=== PATIENT | male | born 1960 | race Caucasian/White ===

== ENCOUNTER 2016-08-07 20:04 | Observation (INO) ==
[2016-08-07] MEDS ORDERED: 0.9 % Sodium Chloride 1,000 ML IVC ONE (20:09)
--- NOTE | 2016-08-07 20:19 | Emergency Department Note ---
Disposition Clinical Impression: Syncope, near Disposition: Admitted As Inpatient Condition: Good Time of Disposition: 22:38 General Adult HPI - General Chief complaint: ED Syncope Stated complaint: syncope Time Seen by Provider: 08/07/16 20:09 Source: EMS Limitations: no limitations Nursing Notes Reviewed: Yes Vital Signs Reviewed: Yes - History of Present Illness HPI Narrative: Outpatient saying that he had a near syncopal episode. This started while sitting. He did have one episode of vomiting and was nauseated prior to feeling like he is going to pass out. He states this happened several times before. The last event was 2 months ago. He states that he has been worked up for this several times with no resolution of his symptoms. Pain Scale: 0 - Related Data Allergies Allergy/AdvReac Type Severity Reaction Status Date / Time No Known Allergies Allergy Verified 08/07/16 20:06 Review of Systems: Patient denies any fevers or chills. He does report a chronic cough that is present over a year with a white sputum. There is been no change in the sputum. His pain but does report right lung pain. He states he has history of pleurisy and this feels the same. He is reporting a near syncopal episode today. Had one episode of vomiting as well as nausea before he got dizzy. He denies any nausea at this time, he denies any abdominal pain. He denies any swelling to his extremities. All systems ED: reviewed and negative except as stated. Past Medical History - Past Medical History Medical history: Reports: coronary artery disease, myocardial infarction Psychiatric history: Reports: no psych history - Social History Smoking Status: Current every day smoker Smokeless Tobacco Status: No Alcohol use: Reports: none, rarely Drug use: Reports: marijuana Physical Exam - General Limitations: no limitations General appearance: alert, in no apparent distress - Head Head exam: atraumatic, normocephalic, normal inspection - Eye Eye exam: Present: normal appearance, PERRL, EOMI. Absent: scleral icterus - ENT ENT exam: normal exam, normal oropharynx, mucous membranes moist - Neck Neck exam: Present: normal inspection, full ROM, trachea midline. Absent: tenderness - Chest Chest inspection: Present: normal inspection, symmetric chest wall rise. Absent : tenderness - Respiratory Respiratory exam: Present: normal lung sounds bilaterally. Absent: respiratory distress, wheezes, accessory muscle use - Cardiovascular Cardiovascular exam: Present: regular rate, normal rhythm, normal heart sounds - Abdominal Exam Abdominal exam: Present: soft, Non-Tender, normal bowel sounds - Extremities Exam Extremities exam: Present: normal inspection, full ROM. Absent: tenderness, pedal edema - Expanded Lower Extremity Exam Hip/Pelvis exam: Present: normal inspection, full ROM Upper leg exam: Present: normal inspection, full ROM Knee exam: Present: normal inspection, full ROM Lower leg exam: Present: normal inspection, full ROM Ankle exam: Present: normal inspection, full ROM Foot/toe exam: Present: normal inspection, full ROM Neurovascular/Tendon exam: Absent: motor deficit, sensory deficit, tendon deficit - Back Exam Back exam: Present: normal inspection, full ROM. Absent: tenderness - Neurological Exam Neurological exam: Present: alert, oriented X3 - Psychiatric Psychiatric exam: Present: normal affect, normal mood - Skin Skin exam: Present: warm, dry, intact. Absent: normal color, rash, cyanosis, diaphoresis, erythema Course Course Narrative: Patient brought into the emergency department by EMS. Patient states he was outside for 4 hours today and he was swimming for about an hour. He states he did not have very much fluid intake. He states that he was sitting on the step whenever he started getting short of breath and dizzy feeling. He states that he then had one episode of vomiting. He felt like he may pass out so he laid down. He states that this happens to him frequently with the last event being 2 months ago. He did not actually pass out. He did get to lay down prior to syncopizing. He denies any chest pain. He states he did get short of breath. He complains of a two-week history of right lung pain. He states he has had pleurisy before and this feels the same. The cough but states this is no different than his normal cough and has been the same for over a year. He denies any fevers or chills. He has no complaints at this time. He states that he feels 100% better. He states that whenever he was dizzy at home that all of the people at his house her TIE HACKER use of some sort and they took his blood pressure. He states that he was systolically in the 60s. During His EMS transport he was given 250 mL of normal saline. We will do a cardiac workup on the patient. I will also get a d-dimer due to his right-sided lung pain. He states that this is not present at this time. - Reevaluation(s) Reevaluation #1: Pt Reevaluated. He states he still does not have any symptoms. He is requesting water. He handles this well. Time: 21:03 Reevaluation #2: Patient's workup is remarkably normal. He does have a slightly increased white count. This could possibly be from his episode of vomiting. I am concerned for patient's near syncopal event especially when it began all he was sitting. After talking with the family that Y states this actually happened 3 times prior to his arrival to the emergency department today. The patient now admits to at least 2 times. We will admit patient to the hospital for further cardiac evaluation. He is agreeable to this. Time: 22:36 - Consultations Consultation #1: Dr Lemos accepted patient in stable condition. Time: 22:41 Vital Signs Temperature 97.5 F L 08/07/16 20:05 Pulse Rate 68 08/07/16 20:05 Respiratory Rate 18 08/07/16 20:05 Blood Pressure 104/67 08/07/16 20:05 O2 Sat by Pulse Oximetry 95 08/07/16 20:05 Temperature 97.5 F L 08/07/16 20:05 Pulse Rate 72 08/07/16 22:14 Respiratory Rate 14 08/07/16 22:14 Blood Pressure 112/69 08/07/16 22:14 O2 Sat by Pulse Oximetry 96 08/07/16 22:14 Oxygen Delivery Oxygen Delivery Room Air Medical Decision Making - Lab Data Lab results reviewed: Yes I reviewed the patient's lab results. Result diagrams: 08/07/16 20:27 08/07/16 20:27 Lab Results 08/07/16 08/07/16 08/07/16 Range/Units 20:27 20:27 20:27 WBC 13.7 H (4.3-11.1) K/mcL RBC 4.68 (4.19-5.50) M/mcL Hgb 13.6 (12.9-16.9) g/dL Hct 41.9 (37.5-50.1) % MCV 89.5 (83.0-100.0) fL MCH 29.1 (28.0-33.3) pg MCHC 32.5 (31.6-35.5) g/dL RDW 14.1 (11.5-14.5) % Plt Count 179 (140-400) K/mcL MPV 9.4 (9.4-12.4) fL Immature Gran % 0.5 (0-4) % Seg Neutrophils % 71.4 % Lymphocytes % 17.5 % Monocytes % 8.5 % Eosinophils % 1.6 % Basophils % 0.5 % Neutrophils # 9.8 H (1.6-8.9) K/mcL Lymphocytes # 2.4 (0.6-4.6) K/mcL Monocytes # 1.2 (0.0-1.3) K/mcL Eosinophils # 0.2 (0.0-0.6) K/mcL Basophils # 0.1 (0.0-0.2) K/mcL D-Dimer (0-500) ng/mLFEU Sodium 138 (136-145) mEq/L Potassium 4.0 (3.5-4.5) mEq/L Chloride 109 (98-109) mEq/L Carbon Dioxide 22 (19-29) mEq/L BUN 18 (8-26) mg/dL Creatinine 1.13 (0.72-1.25) mg/dL Est GFR ( Amer) > 60 (> 60) Est GFR (Non-Af Amer) > 60 (> 60) BUN/Creatinine Ratio 16 (6-26) Glucose 119 H (70-99) mg/dL Calculated Osmolality 289 (280-300) Calcium 8.8 (8.6-10.8) mg/dL Troponin I 0.00 (0-0.03) ng/mL Urine Color (Yellow) Urine Clarity (Clear) Urine pH (5.0-8.0) pH Units Ur Specific [place] (1.010-1.025) Urine Protein (Neg-Trace) mg/dL Urine Glucose (UA) (Normal) mg/dL Urine Ketones (Negative) mg/dL Urine Blood (Negative) Urine Nitrite (Negative) Urine Bilirubin (Negative) Urine Urobilinogen (Normal) mg/dL Ur Leukocyte Esterase (Negative) Ur Culture Indicated? (NO) 08/07/16 08/07/16 Range/Units 20:27 21:49 WBC (4.3-11.1) K/mcL RBC (4.19-5.50) M/mcL Hgb (12.9-16.9) g/dL Hct (37.5-50.1) % MCV (83.0-100.0) fL MCH (28.0-33.3) pg MCHC (31.6-35.5) g/dL RDW (11.5-14.5) % Plt Count (140-400) K/mcL MPV (9.4-12.4) fL Immature Gran % (0-4) % Seg Neutrophils % % Lymphocytes % % Monocytes % % Eosinophils % % Basophils % % Neutrophils # (1.6-8.9) K/mcL Lymphocytes # (0.6-4.6) K/mcL Monocytes # (0.0-1.3) K/mcL Eosinophils # (0.0-0.6) K/mcL Basophils # (0.0-0.2) K/mcL D-Dimer < 215 (0-500) ng/mLFEU Sodium (136-145) mEq/L Potassium (3.5-4.5) mEq/L Chloride (98-109) mEq/L Carbon Dioxide (19-29) mEq/L BUN (8-26) mg/dL Creatinine (0.72-1.25) mg/dL Est GFR ( Amer) (> 60) Est GFR (Non-Af Amer) (> 60) BUN/Creatinine Ratio (6-26) Glucose (70-99) mg/dL Calculated Osmolality (280-300) Calcium (8.6-10.8) mg/dL Troponin I (0-0.03) ng/mL Urine Color Yellow (Yellow) Urine Clarity Clear (Clear) Urine pH 5.5 (5.0-8.0) pH Units Ur Specific [place] 1.026 H (1.010-1.025) Urine Protein Negative (Neg-Trace) mg/dL Urine Glucose (UA) Normal (Normal) mg/dL Urine Ketones Negative (Negative) mg/dL Urine Blood Negative (Negative) Urine Nitrite Negative (Negative) Urine Bilirubin Negative (Negative) Urine Urobilinogen Normal (Normal) mg/dL Ur Leukocyte Esterase Negative (Negative) Ur Culture Indicated? NO (NO) - EKG Data EKG #1 EKG attestation: Yes I reviewed and interpreted this EKG. EKG results narrative: Normal sinus rhythm at a rate of 67. NH interval is 171. QRS duration is 144. QT is 393. QTC is 408. Right bundle branch block. There is some mild ST elevation in leads V1 and V2 with no reciprocal changes. These were on previous EKG dated 06/02/2015. Attestation Statement - Attestation Attestation: I examined this patient and my medical decision-making was reviewed with the MOTOR ADJUSTER/PA/Advanced Practice Nurse/Resident Physician. I agree with the documented findings, disposition and treatment plan as described except to the extent set forth below. Patient emergency department with a chief complaint of syncope. Patient states he had been outside for 45 hours. He had been in the pool for about an hour. He was sitting on the porch when he felt lightheaded and short of breath. History of similar episodes. They do not usually happen when he sitting down. He does have a cardiac history of 5 stents. On examination he is awake and alert sitting up in bed in no acute distress. Neurologically intact. Moving all extremities. Lungs clear. Plan. Cardiac workup with d-dimer. Likely observation.. Workup unremarkable. EKG is unchanged from his prior which we were able to obtain from [facility]. Admitted to hospitalist.
[2016-08-07 20:36] LABS: Basophils # 0.1 K/mcL (0.0-0.2); Basophils % 0.5 %; Eosinophils # 0.2 K/mcL (0.0-0.6); Eosinophils % 1.6 %; Hematocrit 41.9 % (37.5-50.1); Hemoglobin 13.6 g/dL (12.9-16.9); Immature Granulocytes % 0.5 % (0-4); Lymphocytes # 2.4 K/mcL (0.6-4.6); Lymphocytes % 17.5 %; Mean Corpuscular HGB Conc 32.5 g/dL (31.6-35.5); Mean Corpuscular Hemoglobin 29.1 pg (28.0-33.3); Mean Corpuscular Volume 89.5 fL (83.0-100.0); Mean Platelet Volume 9.4 fL (9.4-12.4); Monocytes # 1.2 K/mcL (0.0-1.3); Monocytes % 8.5 %; Neutrophils # 9.8 K/mcL (1.6-8.9); Platelet Count 179 K/mcL (140-400); Red Blood Count 4.68 M/mcL (4.19-5.50); Red Cell Distribution Width 14.1 % (11.5-14.5); Segmented Neutrophils % 71.4 %
[2016-08-07 20:49] LABS: BUN/Creatinine Ratio 16 (6-26); Blood Urea Nitrogen 18 mg/dL (8-26); Calcium 8.8 mg/dL (8.6-10.8); Carbon Dioxide 22 mEq/L (19-29); Chloride 109 mEq/L (98-109); Glucose 119 mg/dL (70-99); Osmolality,Calculated 289 (280-300); Sodium 138 mEq/L (136-145); eGFR For African Americans > 60 (> 60); eGFR For Non-African Americans > 60 (> 60)
[2016-08-07 21:59] LABS: Bilirubin,Urine Negative (Negative); Blood,Urine Negative (Negative); Clarity,Urine Clear (Clear); Color,Urine Yellow (Yellow); Glucose,Urine (UA) Normal (Normal); Ketones,Urine Negative (Negative); Leukocyte Esterase,Urine Negative (Negative); Nitrite,Urine Negative (Negative); PH,Urine 5.5 pH Units (5.0-8.0); Protein,Urine Negative (Neg-Trace); Specific Gravity,Urine 1.026 (1.010-1.025); Urobilinogen,Urine Normal (Normal)
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
[2016-08-08] MEDS ORDERED: Naloxone 0.4 MG/ML INJ IVP PRN (00:59)
[2016-08-08] MEDS: 0.9 % Sodium Chloride 1,000 ML IVC SCH ×2 (01:30→11:30)
[2016-08-08] MEDS ORDERED: Gabapentin 300 MG CAPSULE PO PRN (02:51)
[2016-08-08 02:54] LABS: Hematocrit 41.8 % (37.5-50.1); Hemoglobin 13.7 g/dL (12.9-16.9); Mean Corpuscular HGB Conc 32.8 g/dL (31.6-35.5); Mean Corpuscular Hemoglobin 29.8 pg (28.0-33.3); Mean Corpuscular Volume 90.9 fL (83.0-100.0); Mean Platelet Volume 9.7 fL (9.4-12.4); Platelet Count 171 K/mcL (140-400); Red Cell Distribution Width 14.1 % (11.5-14.5)
[2016-08-08 03:06] LABS: BUN/Creatinine Ratio 17 (6-26); Blood Urea Nitrogen 15 mg/dL (8-26); Calcium 8.3 mg/dL (8.6-10.8); Carbon Dioxide 22 mEq/L (19-29); Chloride 112 mEq/L (98-109); Glucose 96 mg/dL (70-99); Magnesium 1.8 mg/dL (1.6-2.6); Osmolality,Calculated 291 (280-300); Potassium 4.3 mEq/L (3.5-4.5); Sodium 140 mEq/L (136-145); eGFR For African Americans > 60 (> 60); eGFR For Non-African Americans > 60 (> 60)
[2016-08-08] MEDS ORDERED: Aspirin Enteric Coated 325 MG Tablet PO SCH (09:00)
[2016-08-08 10:28] VITALS: BP 143/75
--- NOTE | 2016-08-08 11:18 | Cardiology Consult Note ---
Date of Encounter: 08/08/16 Time of Encounter: 11:15 Assessment and Plan (1) Syncope, near Current Visit: Yes Status: Acute Present episode appears noncardiac, relatated to hypovolemia. He does however have conduction system disease. Current w/u negative, would recommend outpt. cardiology follow up. (2) RBBB Current Visit: Yes Status: Chronic Discussion w patient/family: The assessment and plan as outlined above was discussed with the patient and/or family members who expressed understanding and agreement. All questions were answered. Thank you for involving us in the care of your patient. Please call with any questions. History of Present Illness Consult date: 08/08/16 Requesting physician: Jacklyn Parson Consult reason: Presycope History of present illness: Mr. Encinas is a 56 year old male with no cardiac history who presents after presyncope spell. He has had these spells before where he has some warning and he says his BP drops, then he feels washed out for the rest of the day. He has never actually passed out. Past Med Surg Social Fam HX - Past Medical History Medical history: coronary artery disease, myocardial infarction Psychiatric history: no psych history - Social History Smoking Status: Current every day smoker Packs per day: 0.5 Smokeless Tobacco Status: No Alcohol use: none, rarely Drug use: marijuana - Family History Father Adopted: [place]: JAMI Family Member Ethnicity: Non- Living Status: Age at : 62 Cause of : LIVER DISEASE Hx Family Cardiac Disorders: No Hx Family Respiratory Disorders: No Hx Family Cancer: No Hx Family GI Disorders: No Hx Family Genitourinary Disorders: No Hx Family Endocrine Disorder: No Hx Family Musculoskeletal Disorders: No Hx Family Neuromuscular Disorders: No Hx Family Neurologic Disorders: No Hx Family HEENT Disorders: No Hx Family Autoimmune Disorders: No Hx Family Reproductive Disorders: No Hx Family Psychosocial Disorders: No Hx Family Medical Disorders: No Medications and Allergies Aspirin [Ecotrin] 325 mg PO DAILY 08/07/16 [History] Atorvastatin [Lipitor] 10 mg PO DAILY 08/07/16 [History] Clopidogrel Bisulfate [Plavix] 75 mg PO DAILY 08/07/16 [History] Gabapentin [Neurontin] 300 mg PO TID PRN 08/07/16 [History] Allergies No Known Allergies Allergy (Verified 08/07/16 20:06) All Systems Review: A 10-system review of systems was performed and is negative for pertinent findings except as documented above in the HPI. Physical Examination Vital Signs, Last 4 Hours Temp Pulse Resp BP Pulse Ox 08/08/16 10:27 97.5 F L 64 16 143/75 99 General: Conversant, No Apparent Distress HEENT: Atraumatic, Normocephaly, Mucus Membranes Moist Neck: No JVD, Normal carotid pulses Cardiac: Reg Rate and Rhythm, Normal S1 and S2, No Murmur Lungs: Normal Breath Sounds, No Wheeze, Rales, Rhonchi Neuro: Alert and responsive, No focal deficits noted Abdomen: Soft, Non-Tender Skin: No rashes noted on visualized skin Musculoskeletal: No Chest Wall Tenderness Extremities: No Clubbing, No Cyanosis, No Edema, Normal Pulses Results 08/08/16 02:20 08/08/16 02:20 Lab Results 08/08/16 08/08/16 08/08/16 02:20 02:20 02:20 WBC 9.8 Hgb 13.7 Hct 41.8 Plt Count 171 Sodium 140 Potassium 4.3 Chloride 112 H Carbon Dioxide 22 BUN 15 Creatinine 0.86 Glucose 96 Calcium 8.3 L Magnesium 1.8 Troponin I 0.00 - EKG Interpretation EKG results cardiology: right bundle branch block Consult Discharge Plan - Plan Referrals: Senia Gutierrez, [employer]ACHINIST [Primary Care Provider] -
[2016-08-08] MEDS ORDERED: Nicotine 21 MG PATCH.TD24 TD SCH (12:30)
--- NOTE | 2016-08-08 13:50 | Discharge Summary ---
Date of Encounter: 08/08/16 Time of Encounter: 13:00 - Discharge Diagnosis (1) Syncope, near Priority: Primary Status: Acute Comments: Likely secondary to dehydration/hypovolemia. Chest x-ray negative. Urinalysis negative. Orthostatic vital signs unremarkable. Echocardiogram unremarkable with ejection fraction of 55%. Follow up outpatient with primary care provider and cardiology. (2) CAD (coronary artery disease) Priority: Secondary Status: Chronic Comments: Patient denied chest pain or shortness of breath throughout this admission. Qualifiers: Coronary Disease-Associated Artery/Lesion type: [place] artery [place] vs. transplanted heart: [place] heart Associated angina: without angina Qualified Code(s): I25.10 - Atherosclerotic heart disease of [place] coronary artery without angina pectoris (3) Leucocytosis Priority: Primary Status: Resolved Comments: Likely stress related, no signs of acute infection Qualifiers: Leukocytosis type: unspecified Qualified Code(s): D72.829 - Elevated white blood cell count, unspecified (4) RBBB Priority: Secondary Status: Chronic Comments: Follow-up outpatient with cardiology (5) Tobacco abuse Priority: Secondary Status: Chronic Comments: Declined counseling - Discharge Medications Home Medications: Aspirin [Ecotrin] 325 mg PO DAILY 08/07/16 [History] Atorvastatin [Lipitor] 10 mg PO DAILY 08/07/16 [History] Clopidogrel Bisulfate [Plavix] 75 mg PO DAILY 08/07/16 [History] Gabapentin [Neurontin] 300 mg PO TID PRN 08/07/16 [History] Allergies/Adverse Reactions: Allergies No Known Allergies Allergy (Verified 08/07/16 20:06) Procedures/tests Complete & Pending: Procedures Performed prior 72 hours Category Date Time Status EKG [ECG 12 lead ECG] [ECG] Routine Y 08/08/16 03:22 Ordered EV echocardiogram Routine Y 08/08/16 01:12 Completed Date of admission: 08/07/16 22:59 Primary care physician: Senia Gutierrez CNP Consults: 08/08/16 01:12 Consult to Cardiology [CONS] Routine Comment: Consulting Provider: Caryn Solano Reason for Consult: Near syncope; recurrent Call Completed: No Discharging clinician: Jacklyn Parson Anticipated date of discharge: 08/08/16 - Patient Status Disposition: Home, Self-Care Condition: Good Functional capacity at discharge: independent ambulation Overall status at discharge: patient is back to baseline - Discharge Instructions Follow Up With: Senia Gutierrez CNP [Primary Care Provider] - Nicolás Hoff MD [Partnered Physician] - Additional Instructions: Follow-up with primary care provider within one to 2 weeks, follow-up with cardiology within 2-3 weeks - Diet and Activity Activity: increase activity as tolerated Diet: regular diet Hospital course: Mr. Encinas is a 56 year old male with past medical history of CAD status post stent, tobacco abuse, marijuana abuse. Patient presented to the emergency department chief complaint of dizziness and presyncopal sensations. On a hot, summer afternoon, patient was outside for 4 hours and was swimming with his kids and apparently he did not have very much fluid intake during that timeframe. He started to feel dizzy, felt as if he is going to pass out, and he laid down. He then had a couple episodes of vomiting. Patient also reported pleuritic chest pain on the right side for 2 weeks but denied left- sided chest pain, shortness of breath, fever, or chills. Patient denied abdominal pain, dysuria. Patient's blood pressure was allegedly low at home and EMS noted his systolic to be 80. Patient was given 250 mL's of normal saline and the EMS squad which made him feel better. Patient was also given further IV fluids in the emergency department. Troponin negative. D-dimer negative. Urinalysis negative. Chest x-ray negative. Patient was admitted to the hospitalist service for further evaluation and management. Of note, patient had episodes of syncope in the past with the most recent one approximately 3 months prior to presentation as well as several prior episodes. An echocardiogram was performed which is normal with an ejection fraction of 55%. Patient was euvolemic on examination throughout this admission and his dehydration resolved. He tolerated a regular diet, and was very active in walking around the unit while admitted. He had mild leukocytosis upon presentation which is likely secondary to stress, there were no signs of acute infection. Cardiology was brought on board who cleared the patient for outpatient follow-up and stated he likely has a conduction system disease and recommends outpatient follow-up with cardiology as well. He was discharged home in stable condition with close outpatient follow-up recommended. ITS Impressions Chest X-Ray 08/07/16 20:11 IMPRESSION: No acute cardiopulmonary process identified. D/ / Kenneth Pierre MD / Kenneth Pierre MD Interpreting Provider: Kenneth Pierre MD Echocardiogram impressions: LVEF 55%. Normal LV chamber size, wall thickness and function. Normal left ventricular diastolic function. Normal right ventricular structure and function. Unable to estimate RVSP due to lack of TR jet. No significant valvular dysfunction. - Time Spent with Patient Total time spent providing and/or coordinating discharge services: - Constitutional Vitals: Temp Pulse Resp BP Pulse Ox 97.5 F L 64 16 143/75 99 08/08/16 10:27 08/08/16 10:27 08/08/16 10:27 08/08/16 10:27 08/08/16 10:27 General appearance: Present: A&O X 3, pleasant, no acute distress, answers questions appropriately - Head Head exam: Present: atraumatic, normocephalic - Eye Eye exam: Present: PERRL, conjuntiva pink, sclera anicteric Pupils: Present: PERRL - Neck Neck exam general surgery: Present: supple, trachea midline. Absent: lymphadenopathy - Respiratory Respiratory exam: Present: decreased breath sounds. Absent: accessory muscle use, rales, respiratory distress, rhonchi, wheezes - Cardiovascular Cardiovascular exam: Present: RRR, +S1, +S2. Absent: diastolic murmur, gallop, rubs, systolic murmur - GI/Abdominal GI/Abdominal exam: Present: normal bowel sounds, soft, no peritoneal signs. Absent: distended, tenderness - Extremities Exam Extremities exam: Present: warm, radial pulses palpable and symetrical. Absent : calf tenderness, cyanotic, pedal edema - Neurological Exam Neurological exam: Present: alert, CN II-XII intact, normal gait, oriented X3, no focal deficits, strengths equal and symetr throughout. Absent: pronater drift, facial droop, speech deficit - Skin Skin exam: Present: dry, intact, normal color, warm - VTE Reasons for not Prescribing Prophylaxis: Treatment not Indicated - Low risk for VTE
--- NOTE | 2016-08-10 18:47 | Electrocardiograph Report ---
[place] [id number] Test Date: 2016-08-07 Pat Name: Umang Encinas Department: 105 Room: 3B34 Gender: M Estate Administrator: : [id number] Requested By: Nancy Rasmussen Order Number: [id number] Reading MD: Maria E Hoff Measurements Intervals [place] Rate: 67 P: 71 MO: 171 QRS: 118 QRSD: 144 T: 43 QT: 393 QTc: 408 Interpretive Statements SINUS RHYTHM RIGHT BUNDLE BRANCH BLOCK [120+ ms QRS DURATION, UPRIGHT V1, 40+ ms S IN I/aVL/V4/V5/V6] LEFT POSTERIOR FASCICULAR BLOCK [QRS AXIS > 109, INFERIOR Q] Electronically Signed On 08-10-2016 18:45:41 EDT by Maria E Hoff
== END 2016-08-08 14:21 | disposition home or self-care (01) ==
LOC: 3BNU 20:04 → EMEROO 20:04 → 3BNU 23:35
PROVIDERS: ADMIT Internal Medicine; ATTEND Nurse Practitioner Family